=== PATIENT | male | born 1945 | race Caucasian/White ===

== ENCOUNTER 2016-12-22 21:36 | Outpatient (CLI) | payer MEDICARE, OTHER | END 2016-12-22 21:37 | disposition home or self-care (01) | DX: R35.0 Frequency of micturition (principal) ==

== ENCOUNTER 2016-12-31 09:56 | Outpatient (CLI) | payer MEDICARE, OTHER | END 2016-12-31 09:57 | disposition home or self-care (01) | DX: E83.52 Hypercalcemia (principal); N40.1 Benign prostatic hyperplasia with lower urinary tract symptoms; E87.1 Hypo-osmolality and hyponatremia | CPT/HCPCS: 36415; 82306; 82533; 83735; 84100; 84153; 84443; G0475 ==

== ENCOUNTER 2017-01-31 15:50 | Outpatient (CLI) | payer MEDICARE, OTHER ==
[2017-01-31] MEDS ORDERED: IOPAMIDOL-300 100 ML VIAL IVP ONE (16:33)
== END 2017-01-31 15:51 | disposition home or self-care (01) ==
DX: J43.9 Emphysema, unspecified (principal); J84.10 Pulmonary fibrosis, unspecified; Z72.0 Tobacco use
CPT/HCPCS: 71260; Q9967

== ENCOUNTER 2017-03-01 14:49 | Outpatient (CLI) | payer MEDICARE, OTHER | END 2017-03-01 14:50 | disposition home or self-care (01) | DX: E22.2 Syndrome of inappropriate secretion of antidiuretic hormone (principal); E83.51 Hypocalcemia ==

== ENCOUNTER 2017-03-17 12:28 | Outpatient (CLI) | payer MEDICARE, OTHER | END 2017-03-17 12:29 | disposition home or self-care (01) | DX: R09.89 Other specified symptoms and signs involving the circulatory and respiratory systems (principal); Z72.0 Tobacco use ==

== ENCOUNTER 2017-04-21 09:49 | Day surgery (SDC) | payer MEDICARE, OTHER ==
[~2017-04-21 09:49] MED LIST: PHENYLEPHRINE 2.5% OPHTH 2 ML DROPS ONE
[2017-04-21] MEDS ORDERED: LACTATED RINGERS 500 ML IV ONE (10:01)
[2017-04-21] MEDS ORDERED: KETOROLAC 0.45% OPHTH DROPS OPTH ONE (10:22)
[2017-04-21] MEDS ORDERED: PROPARACAINE 0.5% OPHTH DROPS 15 ML OPTH ONE ×2 (10:22→10:57)
[2017-04-21] MEDS ORDERED: CYCLOPENTOLATE 1% OPHTH DROPS 2 ML OPTH ONE (10:22)
[2017-04-21] MEDS ORDERED: PHENYLEPHRINE 2.5% OPHTH 2 ML DROPS OPTH ONE (10:22)
[2017-04-21] MEDS ORDERED: MIDAZOLAM 2 MG/2 ML VIAL IVP ONE (10:35)
[2017-04-21] MEDS ORDERED: EPINEPHrine 1 MG/ML AMP IVP ONE (10:57)
[2017-04-21] MEDS ORDERED: CHONDR SULF/HYALURONATE SYRINGE IO ONE (10:57)
[2017-04-21] MEDS ORDERED: BRIMONIDINE 0.2% OPHTH DROPS 5 ML OPTH ONE (10:57)
[2017-04-21] MEDS ORDERED: TIMOLOL 0.5% OPHTH DROPS OPTH ONE (10:57)
[2017-04-21] MEDS ORDERED: TRIAMCIN/MOXIFLOX/VANCO 1 ML VIAL IO ONE ×2 (10:57)
[2017-04-21] MEDS ORDERED: BSS/LIDOCAINE/EPINEPHRINE 1 ML SYRINGE IO ONE ×2 (10:57)
[2017-04-21 11:34] VITALS: BP 132/74
--- NOTE | 2017-04-21 14:37 | OPERATIVE REPORT ---
DATE OF SURGERY: 04/21/2017 00:00:00 PREOPERATIVE DIAGNOSIS: Visually significant cataract, right eye. This is his first cataract surgery. POSTOPERATIVE DIAGNOSIS: Visually significant cataract, right eye. This is his first cataract surgery . NAME OF PROCEDURE: Phacoemulsification posterior chamber intraocular lens implant, right eye with las er assist. SURGEON: Reyes Maria MD. ANESTHESIA: Monitored anesthesia care. COMPLICATIONS: None. OPERATIVE INDICATIONS: This is a 72-year-old man with progressive vision loss in the right eye due to 4+ nuclear sclerotic and 1+ posterior subcapsular cataract. Best corrected visual acuity was 20/30 w ith glare to 20/100 in the right eye. INDICATIONS FOR SURGERY: Overall decrease in vision, difficulty seeing words on a computer screen, di fficulty reading, difficulty seeing words or game scores on TV, difficulty seeing street signs, diffi culty driving in low light or at night, difficulty driving at night because of head lights from other vehicles, and difficulty with glare or bright lights in any situation. He was consented at length co ncerning the risks and benefits of cataract surgery, after which he expressed a desire to proceed wit h surgery. OPERATIVE PROCEDURE: The patient was taken into OR #2 and placed under monitored anesthesia care. A s urgical time-out was conducted confirming the correct patient, correct procedure and correct surgical site. He was placed in the LenSx laser and his eye docked to the laser interface. The laser performe d the capsulotomy, lens softening, phaco wounds, and arcuate keratotomy incisions. He was then moved to the operating microscope, given topical anesthesia, and then prepped and draped in the usual steri le fashion. The eye was entered at the 12 and 9 o'clock positions. Intracameral Shugarcaine was injec michael into the anterior chamber, followed by Viscoat. Capsulorrhexis flap created by the LenSx laser wa s removed from the anterior chamber. Nucleus was hydrodissected and phacoemulsified. The cortex was e vacuated using automated infusion aspiration. Provisc was injected in the capsular bag and a 20.0 Polo pter intraocular lens was inserted into the bag. Approximately 0.8 mm of triamcinolone, moxifloxacin, and vancomycin was injected subconjunctivally in the superior quadrant for infection and inflammatio n prophylaxis. I/A was used to evacuate the viscoelastic materials. The eye was inflated to a physiol ogic pressure using balanced salt solution and found to be watertight. The patient was taken from the operating room in good condition and given postoperative instructions. JOB #: [id number] EXT JOB #:[id number]
== END 2017-04-21 09:50 | disposition home or self-care (01) ==
LOC: SDS 09:49
PROVIDERS: ATTEND Ophthalmology
PROC: 08RJ3JZ Replacement of Right Lens with Synthetic Substitute, Percutaneous Approach (ICD-10-PCS; principal; 2017-04-21 11:00)
DX: H25.11 Age-related nuclear cataract, right eye (principal); I10 Essential (primary) hypertension; J43.9 Emphysema, unspecified; Z87.891 Personal history of nicotine dependence
CPT/HCPCS: 66984; A9270; V2632

== ENCOUNTER 2017-06-24 09:43 | Outpatient (CLI) | payer MEDICARE ==
[2017-06-24 15:40] LABS: CREATININE 0.6 mg/dL (0.6-1.2)
== END 2017-06-24 09:44 | disposition home or self-care (01) ==
LOC: LAB.R 09:43
PROVIDERS: ATTEND Nurse Practitioner Primary Care
DX: R35.0 Frequency of micturition (principal)
CPT/HCPCS: 82565; 84153

== ENCOUNTER 2017-07-05 08:39 | Outpatient (CLI) | payer MEDICARE, OTHER ==
[2017-07-05] MEDS ORDERED: GADOBUTROL 7.5 MMOL/7.5 ML VIAL IVP ONE (09:37)
--- NOTE | 2017-07-05 21:41 | MRI Report ---
EXAM: MRI LUMBAR SPINE WITHOUT AND WITH CONTRAST EXAM DATE: 07/05/2017 09:49 AM. CLINICAL HISTORY: FECAL INCONTINENCE. COMPARISONS: Lumbar radiographs 12/31/2014. TECHNIQUE: Multiplanar, multisequence T1-weighted and fluid-sensitive sequences of the lumbar spine f rom T12 to S1 before and after administration of intravenous contrast. IV contrast: 7.5 mL IV Gadavis t. Other: None. FINDINGS: Spinal Cord: The conus terminates at L1-L2. No signal abnormality in the visualized spinal cord. Alignment: There is mild levoconvex lumbar scoliosis, similar to prior radiograph. There is 5 mm ante rolisthesis of L4 on L5. Bone Marrow: Five scx-ubu-gweiryn lumbar vertebral bodies are assumed. Most caudal rib bearing verteb ral body labeled T12. Disk Levels/Facets: T12-L1: Unremarkable. L1-L2: Disk desiccation. Mild bilateral facet arthropathy. No significant canal or foraminal narrowin g. L2-L3: Disk desiccation. No significant canal or foraminal narrowing. L3-L4: Chronic changes of posterior fusion, diskectomy. No significant canal narrowing. Mild right fo raminal narrowing. L4-L5: Chronic changes of posterior fusion and diskectomy. Mild right subarticular narrowing without impingement of the right L5 nerve root. Moderate to severe right, mild left foraminal narrowing. L5-S1: Disk desiccation. Mild bilateral facet arthropathy. No significant canal or subarticular narro wing. Isdl-ie-zntcimop bilateral foraminal narrowing. Spinal Canal: No enhancing masses within the spinal canal. No epidural abscess. Musculature: There is symmetric edema along the paraspinous musculature at L5 and S1. Other: The visualized pelvic cavity is unremarkable. There are several sacral Tarlov cysts at S2-S3 level. Ovoid subcutaneous T2 hyperintensity at T12 lev el to the left of midline possibly representing sebaceous cyst. IMPRESSION: 1. Compared to prior radiograph in 2014, interval posterior interbody fusion from L3 through L5 with diskectomies. 2. At L1-L2, circumferential bulge without significant canal or foraminal narrowing. 3. At L2-L3, circumferential bulge without significant canal or foraminal narrowing. 4. At L3-L4, no significant canal narrowing. Mild right foraminal narrowing. 5. At L4-L5, 5 mm anterolisthesis. Mild right subarticular narrowing without impingement of the right L5 nerve root. Moderate to severe right, mild left foraminal narrowing. Findings could be correlated with right L4 radiculopathy. 6. At L5-S1, mild to moderate bilateral foraminal narrowing without significant canal or subarticular narrowing. 7. No evidence for significant canal narrowing. 8. Symmetric edema along the paraspinous musculature at the L5 and S1, represent postsurgical changes versus recent muscular injury/strain/sprain. Comparison with prior MRI or CT of the lumbar spine would be useful. Comment: The following findings are so common in adults without low back pain that while we report th eir presence, they must be interpreted with caution and in the context of the clinical situation. (Re flo Parson et al, Spine 2001) Prevalence of findings in patients without low back pain: Disk degeneration (any evidence): 92% Disk desiccation/T2 signal loss: 83% Disk height loss: 56% Disk bulge: 64% Disk protrusion: 32% Annular tear/high intensity zone: 38% [facility] Referring Provider Line: [phone] SITE ID: [id number]
== END 2017-07-05 08:40 | disposition home or self-care (01) ==
LOC: DI 08:39
PROVIDERS: ATTEND Nurse Practitioner Primary Care
DX: M51.36 Other intervertebral disc degeneration, lumbar region (principal); M51.37 Other intervertebral disc degeneration, lumbosacral region; M43.16 Spondylolisthesis, lumbar region; M54.16 Radiculopathy, lumbar region; Z98.1 Arthrodesis status
CPT/HCPCS: 72158; A9585

== ENCOUNTER 2018-03-06 08:50 | Outpatient (CLI) | payer OTHER ==
--- NOTE | 2018-03-06 11:23 | MRI Report ---
EXAM: MRI BRAIN WITHOUT CONTRAST EXAM DATE: 03/06/2018 10:11 AM. CLINICAL HISTORY: Hyperreflexia and parkinsonism. COMPARISON: None. TECHNIQUE: Multiplanar, multisequence T1-weighted and fluid-sensitive MR sequences of the brain were performed. Sequences optimized for routine evaluation. Other: None. IV Contrast: None. FINDINGS: Brain Volume: Normal for age. Parenchyma/Dura: No mass, acute infarct or hemorrhage. Mild scattered foci of T2/FLAIR bright white m atter signal are seen in the cerebral hemispheres. Punctate focus of hypointense magnetic susceptibil ity is seen superiorly in the left frontal lobe. This is consistent with old petechial microhemorrhag es. No parenchymal hematoma. Ventricles/Cisterns: No hydrocephalus. No abnormal extra-axial fluid collection or hemorrhage. Orbits: Symmetric and unremarkable. Note is made of right lens removal. Sella Turcica: The pituitary gland, cavernous sinuses, suprasellar cistern and optic chiasm are unrem arkable. IAC: Symmetric and unremarkable. Vasculature: Normal signal flow void is seen in the major arterial structures at the skull base. Sinuses: Partial opacification is seen throughout left mastoid air cells. Bones: No focal pathologic appearing marrow signal changes. Other: None. IMPRESSION: 1. No acute intracranial abnormality. No acute infarct, mass, or hemorrhage. 2. Mild scattered white matter T2/FLAIR bright signal seen in the cerebral hemispheres. This is nonsp ecific but typically secondary to small vessel ischemic change. 3. Partial opacification involving left mastoid air cells. [facility] Referring Provider Line: [phone] SITE ID: [id number]
--- NOTE | 2018-03-06 11:38 | MRI Report ---
EXAM: MRI CERVICAL SPINE WITHOUT CONTRAST EXAM DATE: 03/06/2018 09:45 AM. CLINICAL HISTORY: Hyperreflexia and Parkinsonism. COMPARISONS: Cervical spine plain films 12/11/2015. TECHNIQUE: Multiplanar, multisequence T1-weighted and fluid-sensitive sequences of the cervical spine without contrast. Other: None. FINDINGS: Neurologic Structures: The visualized posterior fossa structures are unremarkable. Abnormal increased T2 signal is seen within the cervical spinal cord centered at C3-C4. Focal cord deformity and flatte jaci is seen at this focus. No definite cystic change is appreciated. Alignment: Accentuated lordosis is seen in the upper cervical spine. Mild levorotatory curvature of t he mid cervical spine is seen. Grade 1, 5 mm, spondylolisthesis is seen at C3-C4. Minimal, 1.5 mm, sp ondylolisthesis is seen at C6-C7 and C7-T1. Bone Marrow: No gross fractures or bone lesions. No marrow edema. A typical hemangioma is noted in th e C7 left facet process. This measures approximately 8.5 mm. This demonstrates increased T1 and T2 si gnal. Heterogeneous STIR signal is noted. Interspace Levels/Facets: C1-C2: Unremarkable on sagittal series. C2-C3: Osseous fusion of the facet joints is seen bilaterally. No stenosis. C3-C4: Moderate to marked hypertrophic degenerative facet change is seen bilaterally. Grade 1 spondyl olisthesis. Moderate loss of disk space height. Diskogenic endplate irregularity and signal abnormali ty. Mild circumferential disk bulge is seen, behind the C3 inferior endplate. Effacement and flatteni ng of the thecal sac and spinal cord is noted. Focal marked canal stenosis is seen secondary to spond ylolisthesis. Bilateral moderate foraminal stenosis. C4-C5: Moderate right-sided degenerative facet change is seen. Minimal dorsal disk bulge is seen. Rig ht-sided degenerative uncovertebral change is evident. Moderate right foraminal stenosis. C5-C6: Osseous fusion of the right facet joint is seen. No stenosis. C6-C7: Mild degenerative facet change is seen on the right. Minimal spondylolisthesis. Effacement of exiting right C7 nerve root is noted. Mild to moderate right foraminal stenosis. C7-T1: Mild degenerative facet change is seen greater on the right. Minimal spondylolisthesis. Mild e ffacement of exiting right C8 nerve root is seen. Mild right foraminal stenosis. T1-T2: Evaluated on sagittal series. Mild dorsal subligamentous disk protrusion. No stenosis. Musculature: Normal. No edema or fatty atrophy. Other: The paravertebral and prevertebral soft tissues are normal. IMPRESSION: 1. Mild levorotatory curvature with accentuated lordosis. Grade 1 spondylotic spondylolisthesis is se en at C3-C4. 2. Focal myelomalacia with cord gliosis seen centered at C3-C4. This is secondary to focal canal sten osis. 3. Spondylosis throughout the cervical spine as noted above. Associated spondylolisthesis is seen. Mu ltilevel stenosis is present, including: -C3-C4: Marked canal stenosis. Bilateral moderate foraminal stenosis. -C4-C5: Right moderate foraminal stenosis. -C6-C7: Right mild to moderate foraminal stenosis. -C7-T1: Right mild foraminal stenosis. Critical result: Findings are discussed with referring treating physician on 03/06/2018 at 1136 hrs. [facility] Referring Provider Line: [phone] SITE ID: [id number]
== END 2018-03-06 08:51 | disposition home or self-care (01) ==
LOC: DI 08:50
PROVIDERS: ATTEND Psychiatry & Neurology Neuromuscular Medicine
DX: G20 Parkinson's disease (principal); R29.2 Abnormal reflex; M47.892 Other spondylosis, cervical region; G95.89 Other specified diseases of spinal cord; M50.31 Other cervical disc degeneration, high cervical region; M43.12 Spondylolisthesis, cervical region; M41.82 Other forms of scoliosis, cervical region
CPT/HCPCS: 70551; 72141

== ENCOUNTER 2018-04-04 11:31 | Outpatient (CLI) | payer MEDICARE, OTHER ==
[2018-04-04 12:02] LABS: BASOPHILS # (AUTO) 0.1 10^3/uL (0.0-0.1); BASOPHILS % (AUTO) 0.7 %; EOSINOPHILS # (AUTO) 0.1 10^3/uL (0.0-0.7); EOSINOPHILS % (AUTO) 1.4 %; HGB - HEMOGLOBIN 14.3 g/dL (14.0-18.0); LYMPHOCYTES # (AUTO) 1.4 10^3/uL (1.5-3.5); LYMPHOCYTES % (AUTO) 16.9 %; MEAN CORPUSCULAR HGB CONC 34.1 g/dL (32.0-36.0); MEAN CORPUSCULAR VOLUME 93.7 fL (80.0-94.0); MEAN PLATELET VOLUME 7.7 fL (7.4-11.4); MONOCYTES # (AUTO) 1.1 10^3/uL (0.0-1.0); MONOCYTES % (AUTO) 12.9 %; NEUTROPHILS # (AUTO) 5.6 10^3/uL (1.5-6.6); NEUTROPHILS % (AUTO) 68.1 %; PLT - PLATELET COUNT 186 10^3/uL (130-450); RED BLOOD COUNT 4.46 10^6/uL (4.70-6.10); WHITE BLOOD COUNT 8.3 x10^3/uL (4.8-10.8)
[2018-04-04 12:29] LABS: ALBUMIN 4.5 g/dL (3.2-5.5); ALBUMIN/GLOBULIN RATIO 1.7 (1.0-2.2); ALKALINE PHOSPHATASE 76 IU/L (42-121); ALT ALANINE AMINOTRANSFERASE 25 IU/L (10-60); AST ASPARTATE AMINOTRANSFERASE 28 IU/L (10-42); BILIRUBIN,TOTAL 0.8 mg/dL (0.2-1.0); BUN - BLOOD UREA NITROGEN 13 mg/dL (6-20); CALCIUM 8.9 mg/dL (8.5-10.3); CARBON DIOXIDE - CO2 28 mmol/L (21-32); CHLORIDE 95 mmol/L (101-111); CHOL/HDL RATIO 2.6 (<5.0); CHOLESTEROL 139 mg/dL; CREATININE 0.5 mg/dL (0.6-1.2); GFR - MDRD 164 (>89); GLUCOSE 83 mg/dL (70-100); HDL CHOLESTEROL 54 mg/dL; LDL CHOLESTEROL,CALCULATED 63 mg/dL; LDL/HDL RATIO 1.2 (<3.6); SODIUM 130 mmol/L (135-145); TOTAL PROTEIN 7.1 g/dL (6.7-8.2); VLDL CHOLESTEROL 22 mg/dL
== END 2018-04-04 11:32 | disposition home or self-care (01) ==
LOC: LAB 11:31
PROVIDERS: ATTEND Nurse Practitioner Primary Care
DX: E55.9 Vitamin D deficiency, unspecified (principal); J44.9 Chronic obstructive pulmonary disease, unspecified; I10 Essential (primary) hypertension; G60.9 Hereditary and idiopathic neuropathy, unspecified; Z13.6 Encounter for screening for cardiovascular disorders
CPT/HCPCS: 36415; 80053; 80061; 82306; 83721; 85025

== ENCOUNTER 2018-12-23 12:52 | Outpatient (CLI) | payer OTHER | END 2018-12-23 12:53 | disposition home or self-care (01) | LOC: DI 12:52 | PROVIDERS: ATTEND Thoracic Surgery (Cardiothoracic Vascular Surgery) | DX: R01.1 Cardiac murmur, unspecified (principal); I10 Essential (primary) hypertension; C34.31 Malignant neoplasm of lower lobe, right bronchus or lung; F17.200 Nicotine dependence, unspecified, uncomplicated | CPT/HCPCS: 93306 ==

== ENCOUNTER 2019-03-01 08:37 | Day surgery (SDC) | payer OTHER ==
[~2019-03-01 08:37] MED LIST changes: +BRIMONIDINE 0.2% OPHTH DROPS 5 ML ONE; +BSS/LIDOCAINE/EPINEPHRINE 1 ML SYRINGE ONE; +CYCLOPENTOLATE 1% OPHTH DROPS 2 ML ONE; +EPINEPHrine 1 MG/ML AMP ONE; +KETOROLAC 0.45% OPHTH DROPS ONE; +PROPARACAINE 0.5% OPHTH DROPS 15 ML ONE; +TIMOLOL 0.5% OPHTH DROPS ONE; +TRIAMCIN/MOXIFLOX OPHTHALMIC 0.6 ML VIAL IO ONE; +VANCOMYCIN OPHTHALMI 8MG/0.8ML 8 MG/0.8 ML SYRINGE IO ONE
[2019-03-01] MEDS ORDERED: CYCLOPENTOLATE 1% OPHTH DROPS 2 ML LEFTEYE ONE (09:00)
[2019-03-01] MEDS ORDERED: PHENYLEPHRINE 2.5% OPHTH 2 ML DROPS LEFTEYE ONE (09:00)
[2019-03-01] MEDS ORDERED: PROPARACAINE 0.5% OPHTH DROPS 15 ML LEFTEYE ONE (09:00)
[2019-03-01] MEDS ORDERED: KETOROLAC 0.45% OPHTH DROPS LEFTEYE ONE (09:00)
[2019-03-01] MEDS ORDERED: LACTATED RINGERS 500 ML IV ONE (09:11)
--- NOTE | 2019-03-01 09:20 | ANESTHESIA ---
Pre-Anesthesia VS, & Labs - Diagnosis left senile combined cataract - Procedure left extraction cataract with lens implant Vital Signs: Temp Pulse Resp BP Pulse Ox 37.2 C 99 18 148/85 H 98 03/01/19 08:45 03/01/19 08:45 03/01/19 08:45 03/01/19 08:45 03/01/19 08:45 Height 6 ft Weight (kg) 75.1 kg Body Mass Index 55.3 - NPO >8 hours Home Medications and Allergies Home Medications: Ambulatory Orders Varenicline Tartrate [Chantix] 1 mg PO BID 02/16/19 Aspirin [Aspirin EC] 81 mg PO DAILY 04/21/17 Multivitamin [Multivitamins] 1 each PO DAILY 04/21/17 Naproxen Sodium [Aleve] 440 mg PO BID 04/21/17 Varenicline Tartrate [Chantix] 1 mg PO BID 02/16/19 Allergies/Adverse Reactions: Allergies Allergy/AdvReac Type Severity Reaction Status Date / Time No Known Drug Allergies Allergy Verified 04/21/17 10:43 Anes History & Medical History - Anesthetic History Anesthesia Complications: reports: No previous complications Family history of Anesthesia Complications: Denies Family history of Malignant Hyperthermia: Denies - Medical History Cardiovascular: reports: Hypertension, Murmur Pulmonary: reports: None Gastrointestinal: reports: None Urinary: reports: None Musculoskeletal: reports: None Endocrine/Autoimmune: reports: None Skin: reports: None - Surgical History Orthopedic: Spine surgery, Other Exam General: Alert, Oriented x3, Cooperative, No acute distress Dental: Partials Upper, Partials Lower Mouth Openin Fingerbreadth Neck Mobility: Normal Mallampati classification: II Thyromental Distance: greater than 6 cm Respiratory: Lungs clear, Normal breath sounds, No respiratory distress, No accessory muscle use Cardiovascular: Normal S1, Other (heart murmur) Mental/Cognitive Status: Alert/Oriented X3, Normal for patient Plan Anesthesia Type: MAC Consent for Procedure(s) Verified and Reviewed: Yes Code Status: Attempt Resuscitation ASA classification: 2-Mild systemic disease Is this case an emergency?: No
[2019-03-01] MEDS ORDERED: fentaNYL 100 MCG/2 ML VIAL IVP ONE (10:00)
[2019-03-01] MEDS ORDERED: MIDAZOLAM 2 MG/2 ML VIAL IVP ONE (10:00)
[2019-03-01] MEDS ORDERED: EPINEPHrine 1 MG/ML AMP IVP ONE (10:02)
[2019-03-01] MEDS ORDERED: BRIMONIDINE 0.2% OPHTH DROPS 5 ML OPTH ONE (10:02)
[2019-03-01] MEDS ORDERED: CHONDR SULF/HYALURONATE SYRINGE IO ONE (10:02)
[2019-03-01] MEDS ORDERED: BSS/LIDOCAINE/EPINEPHRINE 1 ML SYRINGE IO ONE (10:03)
[2019-03-01] MEDS ORDERED: TRIAMCIN/MOXIFLOX OPHTHALMIC 0.6 ML VIAL IO ONE (10:03)
[2019-03-01] MEDS ORDERED: TIMOLOL 0.5% OPHTH DROPS OPTH ONE (10:03)
[2019-03-01] MEDS ORDERED: VANCOMYCIN OPHTHALMI 8MG/0.8ML 8 MG/0.8 ML SYRINGE IO ONE (10:04)
[2019-03-01 10:09] VITALS: BP 137/63
--- NOTE | 2019-03-01 10:57 | OPERATIVE REPORT ---
DATE OF SERVICE: 03/01/2019 Physician: Reyes Maria MD PREOPERATIVE DIAGNOSIS: Visually significant cataract, left eye. Cataract surgery was performed on the right eye on 04/21/2017. POSTOPERATIVE DIAGNOSIS: Visually significant cataract, left eye. Cataract surgery was performed on the right eye on 04/21/2017. PROCEDURE: Phacoemulsification with posterior chamber intraocular lens implant, left eye. SURGEON: Reyes Maria MD ANESTHESIA: Monitored anesthesia care. COMPLICATIONS: None. OPERATIVE INDICATIONS: This is a 74-year-old man with progressive vision loss in the left eye due to 3+ nuclear sclerotic, 2+ cortical, and 2-3+ posterior subcapsular cataract. Best corrected visual a cuity was 20/30, with glare to hand motion vision in the left eye. Indications for surgery are diffi culty driving at night because of headlights from other vehicles and/or street lights, and difficulty with glare or bright lights in any situation. He was consented at length concerning risks and benef its of cataract surgery, after which he expressed a desire to proceed with surgery. OPERATIVE PROCEDURE: The patient was taken to OR #3 and placed under monitored anesthesia care. A s urgical timeout was conducted confirming the correct patient, correct procedure, and correct surgical site. He was given topical anesthesia, and then prepped and draped in the usual sterile fashion. T he eye was entered at 6 and 3 o'clock positions. Intracameral Shugarcaine was injected into the ante rior chamber, followed by Viscoat. A continuous-tear curvilinear capsulorrhexis was performed. The nucleus was hydrodissected and phacoemulsified. The cortex was evacuated using automated infusion an d aspiration. Provisc was injected in the capsular bag, and a 22.5 diopter intraocular lens inserted in the bag. Approximately 0.8 mL of a mixture of triamcinolone, moxifloxacin and vancomycin was inj ected subconjunctivally in the superior quadrant for infection and inflammation prophylaxis. I and A was used to evacuate the viscoelastic materials. The eye was inflated to physiologic pressure using balanced salt solution and found to be watertight. The patient was taken from the operating room in good condition, given postoperative instructions. TD: 03/01/2019 10:23
== END 2019-03-01 08:38 | disposition home or self-care (01) ==
LOC: SDS 08:37
PROVIDERS: ATTEND Ophthalmology
PROC: 08RK3JZ Replacement of Left Lens with Synthetic Substitute, Percutaneous Approach (ICD-10-PCS; principal; 2019-03-01 10:00)
DX: H25.812 Combined forms of age-related cataract, left eye (principal); I10 Essential (primary) hypertension; R01.1 Cardiac murmur, unspecified
CPT/HCPCS: 66984; A9270; J3490; V2632

== ENCOUNTER 2019-10-08 11:47 | Outpatient (CLI) | payer OTHER ==
--- NOTE | 2019-10-08 15:55 | CT Report ---
Reason: F/U RLL AND RUL NODULES Procedure Date: 10/08/2019 Accession Number: [id number] / [id number] Procedure: CT - CHEST WO CPT Code: Final Report FULL RESULT: EXAM: CT CHEST EXAM DATE: 10/08/2019 11:58 AM. CLINICAL HISTORY: Follow up right lower lobe and right upper lobe nodules. COMPARISONS: CHEST W/ 01/31/2017 4:22 PM. TECHNIQUE: Routine helical CT imaging was performed through the chest. IV contrast: None. Reconstructions: Coronal and sagittal. In accordance with CT protocol optimization, one or more of the following dose reduction techniques were utilized for this exam: automated exposure control, adjustment of mA and/or KV based on patient size, or use of iterative reconstructive technique. FINDINGS: Lungs/Pleura: There is a high density irregular parenchymal nodule with spiculated margins measuring 13 x 8 x 8 mm in the right lower lobe reference series 4 image 189. No additional pulmonary nodules. There is focal geographic pleural-based thickening of the upper right lateral pleura reference series 4 image 72; thickening involves roughly a 3 x 2 cm area of pleura roughly 5 mm in maximal thickness. Appearance of focal pleural thickening is similar to right apical pleural thickening. No bronchial thickening, consolidation, or edema. Pulmonary vasculature is normal. No pericardial or pleural effusion. No pneumothorax. Mediastinum: No mediastinal or hilar adenopathy. The heart size is within normal limits. Great vessels appear normal. Significant mitral annular calcification and mild aortic valvular calcification. Significant coronary artery calcium involving the left main and left anterior descending coronary arteries. Bones: Stable anterior wedging compression superior endplate of the T11 vertebral body. Interval significant anterior wedging compression of the inferior endplate of T9 with loss of 60% of the anterior bone height. Visualized Abdomen: Unremarkable. Other: None. IMPRESSION: 1. 13 mm irregular pulmonary nodule with spiculated margins is suspicious for primary malignancy. Appropriate action is recommended; consider referral for tissue sampling. 2. Nonspecific geographic pleural thickening right upper pleura as described favoring sequela of prior inflammatory condition. [facility]
== END 2019-10-08 11:48 | disposition home or self-care (01) ==
LOC: DI 11:47
DX: R91.1 Solitary pulmonary nodule (principal)
CPT/HCPCS: 71250

== ENCOUNTER 2020-07-31 14:14 | Outpatient (CLI) | payer OTHER ==
[2020-07-31 14:27] LABS: BASOPHILS % (AUTO) 0.5 %; EOSINOPHILS % (AUTO) 0.5 %; HGB - HEMOGLOBIN 13.8 g/dL (14.0-18.0); LYMPHOCYTES # (AUTO) 1.7 10^3/uL (1.5-3.5); LYMPHOCYTES % (AUTO) 21.8 %; MEAN CORPUSCULAR HEMOGLOBIN 32.9 pg (27.0-31.0); MEAN CORPUSCULAR HGB CONC 33.1 g/dL (32.0-36.0); MEAN CORPUSCULAR VOLUME 99.3 fL (80.0-94.0); MEAN PLATELET VOLUME 10.5 fL (7.4-11.4); MONOCYTES # (AUTO) 0.8 10^3/uL (0.0-1.0); MONOCYTES % (AUTO) 10.1 %; NEUTROPHILS # (AUTO) 5.1 10^3/uL (1.5-6.6); NEUTROPHILS % (AUTO) 66.7 %; PLT - PLATELET COUNT 165 10^3/uL (130-450); RED CELL DISTRIBUTION WIDTH 12.1 % (12.0-15.0); WHITE BLOOD COUNT 7.6 x10^3/uL (4.8-10.8)
[2020-07-31 14:47] LABS: ALBUMIN 4.2 g/dL (3.2-5.5); ALBUMIN/GLOBULIN RATIO 1.6 (1.0-2.2); ALKALINE PHOSPHATASE 58 IU/L (42-121); ALT ALANINE AMINOTRANSFERASE 22 IU/L (10-60); AST ASPARTATE AMINOTRANSFERASE 24 IU/L (10-42); BILIRUBIN,TOTAL 0.4 mg/dL (0.2-1.0); BUN - BLOOD UREA NITROGEN 17 mg/dL (6-20); CALCIUM 8.9 mg/dL (8.5-10.3); CARBON DIOXIDE - CO2 27 mmol/L (21-32); CHLORIDE 106 mmol/L (101-111); CHOL/HDL RATIO 2.4 (<5.0); CHOLESTEROL 157 mg/dL; CREATININE 0.8 mg/dL (0.6-1.2); GLUCOSE 135 mg/dL (70-100); HDL CHOLESTEROL 66 mg/dL; LDL CHOLESTEROL,CALCULATED 77 mg/dL; LDL/HDL RATIO 1.2 (<3.6); SODIUM 142 mmol/L (135-145); TOTAL PROTEIN 6.8 g/dL (6.7-8.2); VLDL CHOLESTEROL 14 mg/dL
== END 2020-07-31 14:15 | disposition home or self-care (01) ==
LOC: LAB 14:14
PROVIDERS: ATTEND Family Medicine
DX: G60.9 Hereditary and idiopathic neuropathy, unspecified (principal); E55.9 Vitamin D deficiency, unspecified; I73.9 Peripheral vascular disease, unspecified; N40.0 Benign prostatic hyperplasia without lower urinary tract symptoms; M48.02 Spinal stenosis, cervical region; M48.061 Spinal stenosis, lumbar region without neurogenic claudication
CPT/HCPCS: 36415; 80053; 80061; 83721; 84153; 84443; 85025

== ENCOUNTER 2020-08-18 10:48 | Outpatient (CLI) | payer OTHER ==
--- NOTE | 2020-08-18 15:41 | CT Report ---
PROCEDURE: CHEST WO INDICATIONS: LUNG NODULE TECHNIQUE: Noncontrast 5 mm thick sections acquired from the pulmonary apices to the posterior costophrenic angl es. 7 mm thick coronal and sagittal MIP reformats were then acquired. For radiation dose reduction, the following was used: automated exposure control, adjustment of mA and/or kV according to patient size. COMPARISON: 10/08/2019 FINDINGS: Image quality: Excellent. Lungs and pleura: A 1.4 x 1.1 cm spiculated solid lung nodule in the right lower lobe has increased in size. There is spiculation extending towards the overlying pleural surface. Upper lobes demonstrat e mild centrilobular and paraseptal emphysematous change. No acute air space opacities. No pleural e ffusions or pneumothorax. Central and peripheral airways are patent and normal in caliber. Mediastinum: Heart size is normal. Heavy coronary artery calcification is present and dense mitral a nnular calcification. No pericardial effusion. No mediastinal adenopathy by size criteria. Thoracic aorta and central pulmonary arteries are normal in size. Esophagus is normal in caliber. No hiatal hernia. Bones and chest wall: There is a partially imaged subdermal nodule measuring 2.7 cm in the right post erior neck. No suspicious bony lesions. Chronic appearing anterior wedge deformities in the lower tho racic spine. Partially imaged lumbar stabilization hardware. No axillary or supraclavicular adenopa thy by size criteria. The thyroid is normal in size. Abdomen: Extensive colonic diverticulosis in the visible transverse and splenic flexure. Visualized upper abdominal solid organs and bowel loops appear otherwise normal in the absence of contrast. IMPRESSION: 1. Interval enlargement of the suspicious right lower lobe spiculated lung nodule most suggestive of a primary lung carcinoma. 2. No definite adenopathy. 3. Mild emphysema. 4. Heavy coronary artery calcification. Reviewed by: Aylsha Mars MD on 08/18/2020 2:40 PM [facility] Approved by: Alysha Mars MD on 08/18/2020 2:40 PM AK[facility] Station ID: [id number]
== END 2020-08-18 10:49 | disposition home or self-care (01) ==
LOC: DI 10:48
PROVIDERS: ATTEND Family Medicine
DX: R91.8 Other nonspecific abnormal finding of lung field (principal); J43.2 Centrilobular emphysema; J43.8 Other emphysema; I25.10 Atherosclerotic heart disease of native coronary artery without angina pectoris
CPT/HCPCS: 71250

== ENCOUNTER 2020-09-19 13:33 | Outpatient (CLI) | payer OTHER | END 2020-09-19 13:34 | disposition home or self-care (01) | LOC: LAB 13:33 | PROVIDERS: ATTEND Thoracic Surgery (Cardiothoracic Vascular Surgery) | DX: R91.1 Solitary pulmonary nodule (principal); Z20.828 Contact with and (suspected) exposure to other viral communicable diseases ==

== ENCOUNTER 2020-10-14 13:15 | Outpatient (CLI) | payer OTHER | END 2020-10-14 13:16 | disposition home or self-care (01) | LOC: RT 13:15 | PROVIDERS: ATTEND Thoracic Surgery (Cardiothoracic Vascular Surgery) | DX: R91.1 Solitary pulmonary nodule (principal) | CPT/HCPCS: 94060; 94729 ==

== ENCOUNTER 2020-11-07 09:24 | Outpatient (CLI) | payer OTHER ==
[2020-11-07 10:11] LABS: BASOPHILS % (AUTO) 0.6 %; EOSINOPHILS # (AUTO) 0.1 10^3/uL (0.0-0.7); EOSINOPHILS % (AUTO) 0.7 %; HGB - HEMOGLOBIN 14.5 g/dL (14.0-18.0); LYMPHOCYTES # (AUTO) 1.3 10^3/uL (1.5-3.5); LYMPHOCYTES % (AUTO) 17.9 %; MEAN CORPUSCULAR HEMOGLOBIN 33.3 pg (27.0-31.0); MEAN CORPUSCULAR HGB CONC 33.3 g/dL (32.0-36.0); MEAN PLATELET VOLUME 11.2 fL (7.4-11.4); MONOCYTES # (AUTO) 0.9 10^3/uL (0.0-1.0); NEUTROPHILS # (AUTO) 4.9 10^3/uL (1.5-6.6); NEUTROPHILS % (AUTO) 68.7 %; PLT - PLATELET COUNT 145 10^3/uL (130-450); RED BLOOD COUNT 4.35 10^6/uL (4.70-6.10); RED CELL DISTRIBUTION WIDTH 12.1 % (12.0-15.0); WHITE BLOOD COUNT 7.1 x10^3/uL (4.8-10.8)
[2020-11-07 10:22] LABS: CALCIUM 9.4 mg/dL (8.5-10.3); CREATININE 0.7 mg/dL (0.6-1.2)
[2020-11-07 10:24] LABS: PT - PROTHROMBIN TIME 11.7 secs (9.9-12.6)
== END 2020-11-07 09:25 | disposition home or self-care (01) ==
LOC: LAB 09:24
PROVIDERS: ATTEND Thoracic Surgery (Cardiothoracic Vascular Surgery)
DX: Z01.818 Encounter for other preprocedural examination (principal); R91.1 Solitary pulmonary nodule; Z20.828 Contact with and (suspected) exposure to other viral communicable diseases
CPT/HCPCS: 36415; 80048; 85025; 85610

== ENCOUNTER 2020-11-13 13:56 | Outpatient (CLI) | payer OTHER | END 2020-11-13 13:57 | disposition home or self-care (01) | LOC: LAB 13:56 | PROVIDERS: ATTEND Thoracic Surgery (Cardiothoracic Vascular Surgery) | DX: Z01.812 Encounter for preprocedural laboratory examination (principal); Z20.828 Contact with and (suspected) exposure to other viral communicable diseases ==

== ENCOUNTER 2020-12-05 11:10 | Outpatient (CLI) | payer OTHER ==
--- NOTE | 2020-12-05 11:43 | XRAY Report ---
PROCEDURE: Chest 2 View X-Ray INDICATIONS: NODULE OF LOWER LOBE OF RT LUNG TECHNIQUE: 2 view(s) of the chest. COMPARISON: CT of chest dated 08/18/2020 and 10/08/2019. FINDINGS: Surgical changes and devices: Fixation hardware in visualized upper lumbar spine is seen. Lungs and pleura: No pleural effusions or pneumothorax. CT finding of spiculated nodule in posterior right lower lobe is not well seen on this study. Mediastinum: Mediastinal contours are normal. Heart size is normal. Bones and chest wall: No suspicious bony abnormalities. Subcutaneous emphysema along right lateral c hest wall is seen. IMPRESSION: 1. Subcutaneous emphysema along right lateral chest wall extending to right axilla. 2. No gross pneumothorax or significant pleural effusion. Patient's no spiculated nodule in posterior right lower lobe is not well seen on this chest radiograph. Reviewed by: Rogelio Pang MD on 12/05/2020 11:41 AM PST Approved by: Rogelio Pang MD on 12/05/2020 11:41 AM PST Station ID: [id number]
--- OUTSIDE RECORDS SUMMARY | 2020-12-10 01:35 | EXTERNAL MEDICAL SUMMARY RPT | Continuity of Care Document ---
:1945 Demographics Phone Unavailable Preferred Language [place]ese Marital Status Unknown Hindu Affiliation Unknown Race Unknown Ethnic Group Unknown Author Organization [facility] Address [address] [place] [address] Phone Care Team Providers Name Role Phone Demmler Unavailable Unavailable MD Unavailable Unavailable Problems date description facility 2020-09-19 13:33 SOLITARY PULMONARY NODULE Formerly [facility] 2020-09-19 13:33 CONTACT W AND EXPOSURE TO OTH [facility] VIRAL COMMUNICABLE DISEASES 2020-10-14 13:15 SOLITARY PULMONARY NODULE Formerly [facility] 2020-10-14 13:30 SOLITARY PULMONARY NODULE Formerly [facility] 2020-11-17 11:38 Solitary pulmonary nodule [facility] 2020-12-05 11:10 SOLITARY PULMONARY NODULE Formerly [facility] Allergies date description facility GEMFIBROZIL [facility] TETANUS TOXOID [facility] NO KNOWN ENVIRONMENTAL ALLERGIES [facility] NO KNOWN ALLERGIES [facility] No Known Drug Allergies [facility] NO KNOWN ENVIRONMENTAL ALLERGIES [facility] No Known Drug Allergies [facility] Medications date description facility 2020-10-21 00[facility]00[facility] [facility]-10-21 [facility] [facility] 2020-10-21 00:00[facility] 2020-10-21 00:00:[address] [facility] Results Social History date description facility [id number]
== END 2020-12-05 11:11 | disposition home or self-care (01) ==
LOC: DI 11:10
PROVIDERS: ATTEND Thoracic Surgery (Cardiothoracic Vascular Surgery)
DX: T79.7XXA Traumatic subcutaneous emphysema, initial encounter (principal)

== ENCOUNTER 2021-07-13 10:43 | Outpatient (CLI) | payer MEDICARE ==
--- NOTE | 2021-07-13 12:56 | CT Report ---
PROCEDURE: CHEST WO INDICATIONS: LUNG CA TECHNIQUE: Noncontrast images were acquired from the pulmonary apices to the posterior costophrenic angles. Mul tiplanar MIP reformats were then acquired. For radiation dose reduction, the following was used: au tomated exposure control, adjustment of mA and/or kV according to patient size. COMPARISON: 08/18/2020 FINDINGS: Image quality: Excellent. Lungs and pleura: No acute air space opacities. A spiculated nodule previously seen in the right lo wer lobe on the 08/18/20 CT is no longer present. No new nodules or masses in either lungs are identi fied. No pleural effusions or pneumothorax. Right apical scarring is unchanged. Central and peripher al airways are patent and normal in caliber. Mediastinum: Heart size is normal. The coronary arteries have atherosclerotic calcifications. The m itral valve is calcified. No pericardial effusion. No mediastinal adenopathy by size criteria. Thor acic aorta and central pulmonary arteries are normal in size. Esophagus is normal in caliber. No hi atal hernia. Bones and chest wall: No suspicious bony lesions. No vertebral body compression fractures. No axil scott or supraclavicular adenopathy by size criteria. The thyroid is normal in size and there are no incidental findings. Abdomen: Visualized upper abdominal solid organs and bowel loops appear normal in the absence of con trast. IMPRESSION: 1. Right lower lobe spiculated nodule seen on the prior CT on 08/18/2020 is no longer present. 2. No evidence of hilar or mediastinal adenopathy. 3. No evidence of distal metastatic disease. 4. Coronary artery disease. Reviewed by: Daljit Harris on 07/13/2021 12:54 PM PDT Approved by: Daljit Harris on 07/13/2021 12:54 PM PDT Station ID: [id number]
== END 2021-07-13 10:44 | disposition home or self-care (01) ==
LOC: DI 10:43
PROVIDERS: ATTEND Internal Medicine Hematology & Oncology
DX: C34.31 Malignant neoplasm of lower lobe, right bronchus or lung (principal)

== ENCOUNTER 2021-09-18 09:29 | Outpatient (CLI) | payer OTHER ==
[2021-09-18 10:08] LABS: BASOPHILS % (AUTO) 0.4 %; EOSINOPHILS # (AUTO) 0.1 10^3/uL (0.0-0.7); EOSINOPHILS % (AUTO) 1.5 %; HGB - HEMOGLOBIN 14.3 g/dL (14.0-18.0); LYMPHOCYTES # (AUTO) 1.6 10^3/uL (1.5-3.5); LYMPHOCYTES % (AUTO) 22.3 %; MEAN CORPUSCULAR HEMOGLOBIN 32.6 pg (27.0-31.0); MEAN CORPUSCULAR HGB CONC 32.5 g/dL (32.0-36.0); MEAN CORPUSCULAR VOLUME 100.2 fL (80.0-94.0); MEAN PLATELET VOLUME 10.7 fL (7.4-11.4); MONOCYTES # (AUTO) 0.7 10^3/uL (0.0-1.0); MONOCYTES % (AUTO) 10.2 %; NEUTROPHILS # (AUTO) 4.7 10^3/uL (1.5-6.6); NEUTROPHILS % (AUTO) 65.3 %; PLT - PLATELET COUNT 157 10^3/uL (130-450); RED BLOOD COUNT 4.39 10^6/uL (4.70-6.10); RED CELL DISTRIBUTION WIDTH 12.6 % (12.0-15.0); WHITE BLOOD COUNT 7.2 x10^3/uL (4.8-10.8)
[2021-09-18 10:17] LABS: ALBUMIN 4.1 g/dL (3.2-5.5); ALBUMIN/GLOBULIN RATIO 1.5 (1.0-2.2); BILIRUBIN,TOTAL 0.9 mg/dL (0.2-1.0); CALCIUM 8.8 mg/dL (8.5-10.3); CREATININE 0.6 mg/dL (0.6-1.2); POTASSIUM 4.2 mmol/L (3.5-5.0); TOTAL PROTEIN 6.9 g/dL (6.7-8.2)
[2021-09-18 10:34] LABS: THYROID STIMULATING HORMONE 2.69 uIU/mL (0.34-5.60)
[2021-09-18 10:41] LABS: ESTIMATED AVERAGE GLUCOSE 111 mg/dL (70-100); HEMOGLOBIN A1c% 5.5 % (4.27-6.07)
== END 2021-09-18 09:30 | disposition home or self-care (01) ==
LOC: LAB 09:29
PROVIDERS: ATTEND Family Medicine
DX: C34.11 Malignant neoplasm of upper lobe, right bronchus or lung (principal); F17.200 Nicotine dependence, unspecified, uncomplicated; G60.9 Hereditary and idiopathic neuropathy, unspecified; M48.061 Spinal stenosis, lumbar region without neurogenic claudication; Z74.09 Other reduced mobility; R01.1 Cardiac murmur, unspecified; I10 Essential (primary) hypertension; N40.0 Benign prostatic hyperplasia without lower urinary tract symptoms; R73.9 Hyperglycemia, unspecified
CPT/HCPCS: 36415; 80053; 83036; 84443; 85025

== ENCOUNTER 2021-12-17 12:32 | Outpatient (CLI) | payer OTHER ==
[2021-12-17] MEDS ORDERED: IOPAMIDOL-300 50 ML VIAL ONE (13:26)
[2021-12-17] MEDS ORDERED: iohexoL-300 100 ML VIAL ONE (13:26)
[2021-12-17 13:44] LABS: CREATININE 0.7 mg/dL (0.6-1.2)
--- NOTE | 2021-12-17 17:42 | CT Report ---
PROCEDURE: Abdomen/Pelvis W INDICATIONS: LUNG CA CONTRAST: IV CONTRAST: Isovue 300 ml: 100 PO CONTRAST: Isovue 300 ml50 TECHNIQUE: After the administration of IV and oral contrast, 5 mm thick sections acquired from the diaphragms to the symphysis. 5 mm thick coronal and sagittal reformats were acquired. For radiation dose reducti on, the following was used: automated exposure control, adjustment of mA and/or kV according to anne ent size. COMPARISON: Correlation is made with the overlapping portions of the complete chest CT, 12/17/2021 FINDINGS: Image quality: Excellent. ABDOMEN: Lung bases: Lung bases are clear. Heart size is normal. A small hiatal hernia is incidentally note d. Solid organs: Liver and spleen are normal in size and enhancement. Gallbladder wall does not appear thickened. Biliary system is non dilated. Pancreas enhances normally. No adrenal nodules. Kidn eys demonstrate normal size and enhancement, without hydronephrosis. Peritoneum and bowel: Bowel loops demonstrate normal wall thickness and caliber. No free fluid or a ir. Generalized colonic diverticulosis is seen, without findings of active diverticulitis. Nodes and vessels: No retroperitoneal or mesenteric adenopathy by size criteria. Aorta and inferior vena cava are normal in size. Atherosclerotic calcification is seen. Miscellaneous: There is a moderate fat-containing periumbilical hernia PELVIS: Genitourinary: Bladder wall thickness is normal. Miscellaneous: No inguinal hernias or adenopathy. Bilateral groin hernia repair can be seen. Bones: No suspicious bony lesions. No vertebral body compression fractures. Lumbosacral fixation h ardware is seen. No findings of hardware failure or hardware loosening can be seen. Moderate levoconv ex lumbar scoliosis is seen. Generalized degenerative changes can be seen. IMPRESSION: In this patient with a presenting history of lung cancer, no findings of metastatic dise ase can be seen to the liver or the adrenal glands. No significant acute abnormality is seen. Incidental note is made of: Small hiatal hernia Moderately sized fat-containing periumbilical hernia Moderate levoconvex scoliosis Lumbosacral fixation hardware Bilateral groin hernia repair Reviewed by: Stanford De Los Santos MD on 12/17/2021 4:40 PM [facility]ST Approved by: Stanford De Los Santos MD on 12/17/2021 4:40 PM [place] Station ID: [id number]
[2021-12-17] MEDS: iohexoL-300 100 ML VIAL IVP ONE (20:15)
[2021-12-17] MEDS: IOPAMIDOL-300 50 ML VIAL PO ONE (20:16)
--- NOTE | 2021-12-18 08:24 | CT Report ---
PROCEDURE: CHEST W INDICATIONS: LUNG CA CONTRAST: IV CONTRAST: Isovue 300 ml: 100 PO CONTRAST: Isovue 300 ml50 TECHNIQUE: After the administration of intravenous contrast, 1 mm axial images were acquired from the pulmonary apices through the posterior costophrenic angles. Axial 5 mm soft tissue kernel reconstructions were performed as well as 8 mm axial MIP and coronal and sagittal 5 mm reformations. For radiation dose reduction, the following was used: automated exposure control, adjustment of mA and/or kV according to patient size. COMPARISON: 08/18/2020, 07/13/2021 FINDINGS: Image quality: Excellent. Lungs and pleura: Apparent partial pulmonary resection on the right between the 12/18/2019 study of study. No pulmonary nodules are identified. No acute air space opacities. No pleural effusio ns or pneumothorax. Central and peripheral airways are patent and normal in caliber. Mediastinum: Heart size is normal. No pericardial effusion. Severe coronary artery calcifications. No mediastinal or hilar adenopathy by size criteria. Thoracic aorta and central pulmonary arteries a re normal in size. Mild esophageal wall thickening, possibly representing esophagitis. No hiatal fly ia. Bones and chest wall: No suspicious bony lesions. Chronic T9 and T11 compressions. No axillary or moreno praclavicular adenopathy by size criteria. The thyroid is normal in size and there are no incidental findings.. Abdomen: Visualized upper abdominal solid organs appear normal. Upper abdominal bowel loops are nor mal in caliber. IMPRESSION: 1. Currently, there is no evidence of malignancy in the chest. 2. Coronary artery disease. 3. Chronic osteoporotic compressions. CLINICAL RECOMMENDATION STATEMENTS: In patients <35 years with an ITN detected on CT, MRI, or extrathyroidal ultrasound, the Committee re commends further evaluation with dedicated thyroid ultrasound if the nodule is "e1 cm and has no susp icious imaging features, and if the patient has normal life expectancy. In patients "e35 years with an ITN detected on CT, MRI, or extrathyroidal ultrasound, the Committee r ecommends further evaluation with dedicated thyroid ultrasound if the nodule is "e1.5 cm and has no s uspicious imaging features, and if the patient has normal life expectancy. (ACR, 2014) Reviewed by: Alfonso Dow MD on 12/18/2021 8:23 AM PST Approved by: Alfonso Dow MD on 12/18/2021 8:23 AM [facility] Station ID: [id number]
== END 2021-12-17 12:33 | disposition home or self-care (01) ==
LOC: DI 12:32
PROVIDERS: ATTEND Internal Medicine Hematology & Oncology
DX: C34.11 Malignant neoplasm of upper lobe, right bronchus or lung (principal); C34.31 Malignant neoplasm of lower lobe, right bronchus or lung
CPT/HCPCS: 36415; 71260; 74177; 82565; Q9967

== ENCOUNTER 2022-03-09 09:30 | Outpatient (CLI) | payer OTHER ==
[2022-03-09 09:49] LABS: BASOPHILS % (AUTO) 0.5 %; EOSINOPHILS # (AUTO) 0.1 10^3/uL (0.0-0.7); EOSINOPHILS % (AUTO) 1.5 %; HGB - HEMOGLOBIN 14.7 g/dL (14.0-18.0); LYMPHOCYTES # (AUTO) 1.4 10^3/uL (1.5-3.5); LYMPHOCYTES % (AUTO) 18.2 %; MEAN CORPUSCULAR HEMOGLOBIN 32.1 pg (27.0-31.0); MEAN CORPUSCULAR HGB CONC 32.7 g/dL (32.0-36.0); MEAN CORPUSCULAR VOLUME 98.3 fL (80.0-94.0); MEAN PLATELET VOLUME 10.5 fL (7.4-11.4); MONOCYTES # (AUTO) 0.8 10^3/uL (0.0-1.0); MONOCYTES % (AUTO) 10.1 %; NEUTROPHILS # (AUTO) 5.2 10^3/uL (1.5-6.6); NEUTROPHILS % (AUTO) 69.4 %; PLT - PLATELET COUNT 156 10^3/uL (130-450); RED BLOOD COUNT 4.58 10^6/uL (4.70-6.10); RED CELL DISTRIBUTION WIDTH 12.5 % (12.0-15.0); WHITE BLOOD COUNT 7.5 x10^3/uL (4.8-10.8)
[2022-03-09 10:08] LABS: ALBUMIN 4.5 g/dL (3.2-5.5); ALBUMIN/GLOBULIN RATIO 1.7 (1.0-2.2); ALKALINE PHOSPHATASE 51 IU/L (42-121); ALT ALANINE AMINOTRANSFERASE 28 IU/L (10-60); AST ASPARTATE AMINOTRANSFERASE 30 IU/L (10-42); BILIRUBIN,TOTAL 0.8 mg/dL (0.2-1.0); BUN - BLOOD UREA NITROGEN 17 mg/dL (6-20); CALCIUM 8.7 mg/dL (8.5-10.3); CARBON DIOXIDE - CO2 27 mmol/L (21-32); CHLORIDE 103 mmol/L (101-111); CHOL/HDL RATIO 2.3 (<5.0); CHOLESTEROL 174 mg/dL; CREATININE 0.7 mg/dL (0.6-1.2); GFR - MDRD 110 (>89); GLUCOSE 92 mg/dL (70-100); HDL CHOLESTEROL 75 mg/dL; LDL CHOLESTEROL,CALCULATED 89 mg/dL; LDL/HDL RATIO 1.2 (<3.6); POTASSIUM 4.1 mmol/L (3.5-5.0); SODIUM 141 mmol/L (135-145); TOTAL PROTEIN 7.2 g/dL (6.7-8.2); TRIGLYCERIDES 52 mg/dL; VLDL CHOLESTEROL 10 mg/dL
[2022-03-09 10:18] LABS: THYROID STIMULATING HORMONE 2.71 uIU/mL (0.34-5.60)
[2022-03-09 12:53] LABS: ESTIMATED AVERAGE GLUCOSE 117 mg/dL (70-100); HEMOGLOBIN A1c% 5.7 % (4.27-6.07)
== END 2022-03-09 09:31 | disposition home or self-care (01) ==
LOC: LAB 09:30
PROVIDERS: ATTEND Family Medicine
DX: M48.061 Spinal stenosis, lumbar region without neurogenic claudication (principal); F17.200 Nicotine dependence, unspecified, uncomplicated; R73.9 Hyperglycemia, unspecified; J44.9 Chronic obstructive pulmonary disease, unspecified
CPT/HCPCS: 36415; 80053; 80061; 83036; 83721; 84443; 85025

== ENCOUNTER 2023-02-04 10:33 | Outpatient (CLI) | payer OTHER ==
[2023-02-04 10:47] LABS: BASOPHILS # (AUTO) 0.1 10^3/uL (0.0-0.1); BASOPHILS % (AUTO) 0.7 %; EOSINOPHILS # (AUTO) 0.1 10^3/uL (0.0-0.7); EOSINOPHILS % (AUTO) 1.1 %; HCT - HEMATOCRIT 44.5 % (42.0-52.0); HGB - HEMOGLOBIN 14.2 g/dL (14.0-18.0); LYMPHOCYTES # (AUTO) 1.3 10^3/uL (1.5-3.5); LYMPHOCYTES % (AUTO) 18.8 %; MEAN CORPUSCULAR HEMOGLOBIN 31.1 pg (27.0-31.0); MEAN CORPUSCULAR HGB CONC 31.9 g/dL (32.0-36.0); MEAN CORPUSCULAR VOLUME 97.6 fL (80.0-94.0); MEAN PLATELET VOLUME 10.3 fL (7.4-11.4); MONOCYTES # (AUTO) 0.8 10^3/uL (0.0-1.0); MONOCYTES % (AUTO) 10.7 %; NEUTROPHILS # (AUTO) 4.9 10^3/uL (1.5-6.6); NEUTROPHILS % (AUTO) 68.3 %; PLT - PLATELET COUNT 184 10^3/uL (130-450); RED BLOOD COUNT 4.56 10^6/uL (4.70-6.10); WHITE BLOOD COUNT 7.1 x10^3/uL (4.8-10.8)
[2023-02-04 10:53] LABS: ESTIMATED AVERAGE GLUCOSE 123 mg/dL (70-100); HEMOGLOBIN A1c% 5.9 % (4.27-6.07)
[2023-02-04 11:05] LABS: ALBUMIN 4.1 g/dL (3.2-5.5); ALBUMIN/GLOBULIN RATIO 1.6 (1.0-2.2); ALKALINE PHOSPHATASE 58 IU/L (42-121); ALT ALANINE AMINOTRANSFERASE 26 IU/L (10-60); AST ASPARTATE AMINOTRANSFERASE 31 IU/L (10-42); BILIRUBIN,TOTAL 0.9 mg/dL (0.2-1.0); BUN - BLOOD UREA NITROGEN 22 mg/dL (6-20); CALCIUM 8.7 mg/dL (8.5-10.3); CARBON DIOXIDE - CO2 28 mmol/L (21-32); CHLORIDE 103 mmol/L (101-111); CHOL/HDL RATIO 2.3 (<5.0); CHOLESTEROL 157 mg/dL; CREATININE 0.7 mg/dL (0.6-1.2); GFR - MDRD 110 (>89); GLUCOSE 94 mg/dL (70-100); HDL CHOLESTEROL 67 mg/dL; POTASSIUM 4.2 mmol/L (3.5-5.0); SODIUM 140 mmol/L (135-145); TOTAL PROTEIN 6.7 g/dL (6.7-8.2); TRIGLYCERIDES 38 mg/dL
[2023-02-04 11:15] LABS: THYROID STIMULATING HORMONE 2.54 uIU/mL (0.34-5.60)
== END 2023-02-04 10:34 | disposition home or self-care (01) ==
LOC: LAB 10:33
PROVIDERS: ATTEND Family Medicine
DX: I10 Essential (primary) hypertension (principal); M48.061 Spinal stenosis, lumbar region without neurogenic claudication; R73.9 Hyperglycemia, unspecified; C34.11 Malignant neoplasm of upper lobe, right bronchus or lung; M19.042 Primary osteoarthritis, left hand; M19.041 Primary osteoarthritis, right hand
CPT/HCPCS: 36415; 80053; 80061; 83036; 83721; 84443; 85025

== ENCOUNTER 2023-12-22 08:32 | Outpatient (CLI) | payer OTHER ==
[2023-12-22 08:46] LABS: BASOPHILS % (AUTO) 0.6 %; EOSINOPHILS # (AUTO) 0.1 10^3/uL (0.0-0.7); EOSINOPHILS % (AUTO) 1.5 %; HCT - HEMATOCRIT 43.4 % (42.0-52.0); HGB - HEMOGLOBIN 14.2 g/dL (14.0-18.0); LYMPHOCYTES # (AUTO) 1.4 10^3/uL (1.5-3.5); LYMPHOCYTES % (AUTO) 21.3 %; MEAN CORPUSCULAR HEMOGLOBIN 31.6 pg (27.0-31.0); MEAN CORPUSCULAR HGB CONC 32.7 g/dL (32.0-36.0); MEAN CORPUSCULAR VOLUME 96.4 fL (80.0-94.0); MEAN PLATELET VOLUME 10.5 fL (7.4-11.4); MONOCYTES # (AUTO) 0.8 10^3/uL (0.0-1.0); MONOCYTES % (AUTO) 11.7 %; NEUTROPHILS # (AUTO) 4.2 10^3/uL (1.5-6.6); NEUTROPHILS % (AUTO) 64.7 %; PLT - PLATELET COUNT 163 10^3/uL (130-450); RED CELL DISTRIBUTION WIDTH 12.3 % (12.0-15.0); WHITE BLOOD COUNT 6.5 x10^3/uL (4.8-10.8)
[2023-12-22 09:00] LABS: ALBUMIN 4.3 g/dL (3.2-5.5); ALBUMIN/GLOBULIN RATIO 1.7 (1.0-2.2); ALKALINE PHOSPHATASE 62 IU/L (42-121); ALT ALANINE AMINOTRANSFERASE 26 IU/L (10-60); AST ASPARTATE AMINOTRANSFERASE 31 IU/L (10-42); BILIRUBIN,TOTAL 0.6 mg/dL (0.2-1.0); BUN - BLOOD UREA NITROGEN 14 mg/dL (6-20); CALCIUM 9.2 mg/dL (8.5-10.3); CARBON DIOXIDE - CO2 29 mmol/L (21-32); CHLORIDE 102 mmol/L (101-111); CHOL/HDL RATIO 2.1 (<5.0); CHOLESTEROL 161 mg/dL; CREATININE 0.7 mg/dL (0.6-1.3); GFR - MDRD 110 (>89); GLUCOSE 96 mg/dL (74-104); HDL CHOLESTEROL 76 mg/dL; LDL CHOLESTEROL,CALCULATED 72 mg/dL; LDL/HDL RATIO 0.9 (<3.6); POTASSIUM 4.3 mmol/L (3.5-4.5); SODIUM 137 mmol/L (135-145); TOTAL PROTEIN 6.8 g/dL (6.4-8.9); TRIGLYCERIDES 64 mg/dL (48-352); VLDL CHOLESTEROL 13 mg/dL
[2023-12-22 09:15] LABS: THYROID STIMULATING HORMONE 3.68 uIU/mL (0.34-5.60)
[2023-12-22 09:16] LABS: ESTIMATED AVERAGE GLUCOSE 111 mg/dL (70-100); HEMOGLOBIN A1c% 5.5 % (4.27-6.07)
== END 2023-12-22 08:33 | disposition home or self-care (01) ==
LOC: LAB 08:32
PROVIDERS: ATTEND Family Medicine
DX: K22.9 Disease of esophagus, unspecified (principal); Z12.5 Encounter for screening for malignant neoplasm of prostate; M48.061 Spinal stenosis, lumbar region without neurogenic claudication; F17.200 Nicotine dependence, unspecified, uncomplicated; R73.9 Hyperglycemia, unspecified; C34.11 Malignant neoplasm of upper lobe, right bronchus or lung; Z98.1 Arthrodesis status
CPT/HCPCS: 36415; 80053; 80061; 83036; 83721; 84153; 84443; 85025

== ENCOUNTER 2024-03-05 12:46 | Outpatient (CLI) | payer OTHER ==
--- NOTE | 2024-03-05 20:24 | CT Report ---
PROCEDURE: Lumbar Spine WO INDICATIONS: LUMBAR SPIANL STENOSIS, LUMBAR FUSION TECHNIQUE: Noncontrast 3 mm thick sections acquired from the T12 level to the sacrum. Sagittal and coronal refo rmats were constructed. For radiation dose reduction, the following was used: automated exposure co ntrol, adjustment of mA and/or kV according to patient size. COMPARISON: Correlation is made with prior CT examinations, 12/23/2023, 05/24/2023 FINDINGS: Image quality: Metallic Bones: Moderate levoconvex lumbar scoliosis is seen. There is mild anterolisthesis seen at the L4-L5 level. No acute vertebral body compression fractures. No suspicious lytic or blastic bony lesions. Central spinal caliber is of normal overall caliber. No pars defects. Postoperative changes are seen, with bilateral pedicle screws at L3, L4, and L5. Vertical fixation ro ds are seen. Disc spacers are seen at L3-L4 and L4-L5. Minimal lucency can be seen adjacent to the ri ght L5 screw, as on series 9 image 77. T12-L1: Normal in appearance. L1-L2: The disc height is relatively well preserved. Mild disc bulge is seen. Mild facet hyper trophy is seen. There is moderate right-sided and at least moderate left-sided neuroforaminal narrowi ng. Mild central canal narrowing is seen. L2-L3: At least moderate loss of disc height is seen. Endplate irregularity and sclerosis can be s een. Vacuum disc phenomenon is seen at this level. Moderate disc bulge is seen at this level. M oderate facet hypertrophy is seen. There is moderate left-sided and at least moderate right-sided helene roforaminal narrowing. Moderate central canal narrowing is seen. L3-L4: Postoperative changes are seen at this level. Mild disc bulge is seen. There is mild right- sided and no left-sided neuroforaminal narrowing. No central canal narrowing is seen. L4-L5: Moderate disc bulge is seen, which is eccentric to the right. Moderate facet hypertrophy is seen. There is at least moderate right-sided neuroforaminal narrowing. Minimal left-sided neurofor aminal narrowing is seen. No significant central canal narrowing is seen. L5-S1: At least moderate loss of disc height is seen. Vacuum disc phenomenon is seen at this level . Endplate irregularity and sclerosis can be seen. There is mild right-sided and at least moderate left-sided facet hypertrophy. There is at least moderate bilateral neuroforaminal narrowing. No signi ficant central canal narrowing can be seen. Soft tissues: No retroperitoneal masses or hematomas. Visualized aorta is normal in caliber. Ather osclerotic calcification is seen. IMPRESSION: L3-L5 postoperative hardware. There is mild lucency seen adjacent to the right L5 screw. The hardware otherwise is unremarkable. There is focal degenerative change seen at L2-L3 and at L5-S1. Moderate levoconvex lumbar scoliosis can be seen. Reviewed by: Stanford De Los Santos MD on 03/05/2024 7:23 PM [facility] Approved by: Stanford De Los Santos MD on 03/05/2024 7:23 PM AKDT Station ID: [id number]
== END 2024-03-05 12:47 | disposition home or self-care (01) ==
LOC: DI 12:46
PROVIDERS: ATTEND Family Medicine
DX: M47.816 Spondylosis without myelopathy or radiculopathy, lumbar region (principal); M47.817 Spondylosis without myelopathy or radiculopathy, lumbosacral region; M51.36 Other intervertebral disc degeneration, lumbar region; M48.061 Spinal stenosis, lumbar region without neurogenic claudication